=== PATIENT | female | born 2000 | race Two or more races ===

== ENCOUNTER → 2020-06-24 | Outpatient (CLI) | payer OTHER | END | disposition home or self-care (01) | LOC: PPH VACUNA | DX: Z23 Encounter for immunization (principal) ==

== ENCOUNTER 2024-01-01 14:26 | Outpatient (CLI) | payer OTHER | END 2024-01-01 14:28 | disposition home or self-care (01) | LOC: PRENATAL 14:26 | PROVIDERS: ATTEND Obstetrics & Gynecology Maternal & Fetal Medicine | DX: O36.80X0 Pregnancy with inconclusive fetal viability, not applicable or unspecified (principal); Z36.9 Encounter for antenatal screening, unspecified; Z36.82 Encounter for antenatal screening for nuchal translucency; Z3A.16 16 weeks gestation of pregnancy ==

== ENCOUNTER 2024-01-29 09:38 | Outpatient (CLI) | payer OTHER | END 2024-01-29 09:39 | disposition home or self-care (01) | LOC: PRENATAL 09:38 | PROVIDERS: ATTEND Obstetrics & Gynecology Maternal & Fetal Medicine | DX: O44.00 Complete placenta previa NOS or without hemorrhage, unspecified trimester (principal); O99.210 Obesity complicating pregnancy, unspecified trimester; Z3A.20 20 weeks gestation of pregnancy ==

== ENCOUNTER → 2024-03-31 11:07 | Outpatient (CLI) | payer OTHER | END | disposition home or self-care (01) | LOC: PRENATAL 11:07 | PROVIDERS: ATTEND Obstetrics & Gynecology Maternal & Fetal Medicine | DX: O26.843 Uterine size-date discrepancy, third trimester (principal); O36.8130 Decreased fetal movements, third trimester, not applicable or unspecified; O99.210 Obesity complicating pregnancy, unspecified trimester; Z3A.30 30 weeks gestation of pregnancy ==

== ENCOUNTER → 2024-04-30 09:59 | Outpatient (CLI) | payer OTHER | END | disposition home or self-care (01) | LOC: PRENATAL 09:59 | PROVIDERS: ATTEND Obstetrics & Gynecology Maternal & Fetal Medicine | DX: O26.849 Uterine size-date discrepancy, unspecified trimester (principal); O36.8199 Decreased fetal movements, unspecified trimester, other fetus; O99.210 Obesity complicating pregnancy, unspecified trimester; Z3A.34 34 weeks gestation of pregnancy ==

== ENCOUNTER 2024-06-08 04:48 | Inpatient (IN) | payer OTHER ==
[2024-06-08] VITALS (13 sets, daily range): BP systolic 112–149; BP diastolic 66–88
[~2024-06-08] VITALS: Ht 165.1 cm; Wt 118.4 kg
[~2024-06-08 04:48] MED LIST: ECOTRIN81 MG PO; PRENATAL + DHA1 EAC1 PO
[2024-06-08] MEDS ORDERED: CHILDREN'S ASPI81 MG (04:54)
[2024-06-08] MEDS ORDERED: PRENATA CHEWAB1 EACH PO (04:54)
[2024-06-08] MEDS ORDERED: RINGERS SOLUTION,LACTATED 1,000 ML IV SCH (05:00)
[2024-06-08 06:20] LABS: PH,URINE 6.5 (5.0-8.0); URINE APPEARANCE Cloudy; URINE BILIRRUBIN Negative (NEGATIVE); URINE BLOOD Negative; URINE COLOR Yellow; URINE GLUCOSE Negative (NEGATIVE); URINE LEUKOCYTE Moderate; URINE NITRATE Negative; URINE PROTEIN Trace (NEGATIVE); URINE UROBILINOGEN 0.2 E.U./dl
[2024-06-08 06:23] LABS: URINE BACTERIA 2261.6 uL (0.0-1933); URINE EPITHELIAL CELLS 60.7 uL (0.0-38.8); URINE RBC 5.1 uL (0.0-20.8); URINE WBC 258.4 uL (0.0-23.2)
[2024-06-08 06:27] LABS: HEMATOCRIT 38.9 % (36.0-45.00); HEMOGLOBIN 12.2 g/dL (12.0-15.00); MEAN CELL VOLUME 71.4 fL (80.00-100.00); MEAN CORPUSCULAR HEMOGLOBIN 22.3 pg (27.00-32.0); MEAN CORPUSCULAR HGB CONC 31.2 g/dl (32.0-36.0); PLATELET COUNT 211 K/uL (150-450); RED BLOOD COUNT 5.46 M/uL (4.00-6.00); RED CELL DISTRIBUTION WIDTH 15.5 % (11.5-14.5); URINE KETONE 40 (NEGATIVE)
[2024-06-08 06:40] LABS: INR 0.96; PARTIAL THROMBOPLASTIN TIME 26.5 SECONDS (22.0-34.0); PROTHROMBIN TIME 10.5 SECONDS (9.0-11.5)
[2024-06-08 07:10] LABS: BILIRUBIN TOTAL 0.47 mg/dL (0.3-1.2); CALCIUM 9.7 mg/dL (8.5-10.1); CREATININE SERUM 0.66 mg/dL (0.55-1.02); GFR 109.12; GLOBULINA 4.7 G/DL (2.4-3.5); POTASSIUM 4.13 mEq/L (3.5-5.1); TOTAL PROTEIN 7.7 gm/dL (6.4-8.2)
[2024-06-08] MEDS ORDERED: MORPHINE SULFATE 4 MG/ML CARTRIDGE IV ONE ×2 (09:00→13:45)
[2024-06-08] MEDS ORDERED: OXYTOCIN 20 UNITS/500ML RL PIGGYBAG IV ONE (12:33)
[2024-06-08] MEDS ORDERED: OXYTOCIN 500 ML IV ONE (12:45)
[2024-06-08] MEDS ORDERED: LIDOCAINE HCL 1% 10ML VIAL ONE (14:41)
[2024-06-08] MEDS ORDERED: ERYTHROMYCIN BASE OPHT 1GM EACH TUBE OP ONE ×2 (14:41→15:30)
[2024-06-08] MEDS ORDERED: CHLORHEXIDINE GLUCONATE 120 ML BOTTLE TOP ONE ×2 (14:41→15:30)
[2024-06-08] MEDS ORDERED: OXYTOCIN 20 UNITS/1000ML RL PIGGYBAG IV ONE ×2 (14:41→15:30)
[2024-06-08] MEDS ORDERED: OXYTOCIN 10 UNITS/ML VIAL ONE (14:43)
[2024-06-08] MEDS ORDERED: LIDOCAINE HCL 1% 10ML VIAL PERCUT ONE (15:30)
[2024-06-08] MEDS ORDERED: OXYTOCIN 10 UNIT/ML (10ML) IV ONE (15:30)
[2024-06-08] MEDS ORDERED: IBUprofen 400 MG TABLET PO PRN (15:30)
[2024-06-08] MEDS ORDERED: OXYTOCIN 10 UNITS/ML VIAL IM STA (16:00)
[2024-06-08] MEDS ORDERED: CHLORHEXIDINE GLUCONATE 120 ML BOTTLE TOP SCH (16:00)
[2024-06-08] MEDS ORDERED: OXYTOCIN 1,000 ML IV SCH (16:00)
[2024-06-08 22:12] LABS: HEMATOCRIT 34.7 % (36.0-45.00); HEMOGLOBIN 10.9 g/dL (12.0-15.00); MEAN CELL VOLUME 71.1 fL (80.00-100.00); MEAN CORPUSCULAR HEMOGLOBIN 22.3 pg (27.00-32.0); MEAN CORPUSCULAR HGB CONC 31.4 g/dl (32.0-36.0); PLATELET COUNT 195 K/uL (150-450); RED BLOOD COUNT 4.88 M/uL (4.00-6.00); RED CELL DISTRIBUTION WIDTH 15.8 % (11.5-14.5)
[2024-06-09 01:01] VITALS: BP 120/76
[2024-06-09 08:00] VITALS: BP 120/86
[2024-06-09 16:21] VITALS: BP 120/81
[2024-06-10 00:44] VITALS: BP 114/72
[2024-06-10 08:00] VITALS: BP 120/80
[2024-06-11] MEDS ORDERED: CEFAZOLIN SODIUM 1,000 MG VIAL ONE (17:24)
== END 2024-06-10 16:16 | disposition home or self-care (01) | DRG 807 ==
LOC: LDR → OB/GYN 04:48
PROVIDERS: ADMIT Obstetrics & Gynecology; ATTEND Obstetrics & Gynecology
PROC: 10E0XZZ Delivery of Products of Conception, External Approach (ICD-10-PCS; principal; 2024-06-08)
PROC: 0KQM0ZZ Repair Perineum Muscle, Open Approach (ICD-10-PCS; 2024-06-08)
PROC: 4A1HXCZ Monitoring of Products of Conception, Cardiac Rate, External Approach (ICD-10-PCS; 2024-06-08)
DX: O70.1 Second degree perineal laceration during delivery (principal); Z37.0 Single live birth; Z3A.39 39 weeks gestation of pregnancy